=== PATIENT | female | born 1950 | race Caucasian/White ===

== ENCOUNTER 2017-11-13 10:00 | Emergency (ER) | payer OTHER ==
[2017-11-13 10:42] VITALS: TEMP 99.8; BMI 23.4
--- NOTE | 2017-11-13 10:45 | PDOC ---
History of Present Illness - General Chief Complaint: Tremors Stated Complaint: SHAKING Time Seen by Provider: 11/13/17 10:32 - History of Present Illness Initial Comments: 11/13/17 11:15 Chief complaint: Patient is nonverbal, with severe dementia, history obtained from care home staff by phone. Patient is usually ambulatory, wasn't able to get out of bed this morning, appeared to be "shaking", was treated for a UTI at [facility] emergency room 3 days ago, concern was sepsis. History of present illness: As noted above. No known fall, loss of consciousness , head or neck injury. One episode of vomiting 3 days ago, as noted by the staff. Otherwise no other symptoms. Eating and drinking adequately. No further vomiting or diarrhea Past medical history: High blood pressure, elevated cholesterol, hypothyroidism , status post CVA, severe dementia Medications as noted Social/family history: Resident of care home, according to the staff she is usually ambulatory, nonverbal, severely confused. Physical exam: Awake and alert, however confused, not coherent verbally and does not appear to understand or follow commands. Smiles at questions Afebrile, vital signs stable Head atraumatic. PERRLA, ENT clear except for dry mucous membranes Neck supple without bruit mass or nodes Chest clear with full breath sounds throughout bilaterally, no wheezes rales or rhonchi CV S1 and S2 normal without murmur rub or gallop pulses full and symmetric no JVD or edema no bruits Abdomen nondistended, normal bowel sounds. Soft without masses tenderness organomegaly Neurological: Limited cooperation. There appear to be no gross focal deficits. Babinski's down. Gait not assessed. There is no tremor or rigors at present Extremities no CCE. No visible or palpable trauma to the spine or pelvis. Good range of motion of the hips without obvious pain. No shoulder deformity Skin clear, no rash, adequate turgor Impression: Rule out sepsis Plan: CBC chemistries urinalysis urine culture blood cultures lactate chest x- ray and further observation. Past History - Past Medical History Allergies/Adverse Reactions: Allergies Allergy/AdvReac Type Severity Reaction Status Date / Time No Known Allergies Allergy Verified 11/13/17 10:14 Home Medications: Ambulatory Orders Aspirin [Aspirin EC] 81 mg PO DAILY 11/17/16 Atorvastatin Ca [Lipitor] 10 mg PO HS 11/17/16 Cholecalciferol (Vitamin D3) [Vitamin D3] 5,000 unit PO DAILY 11/17/16 Donepezil HCl [Aricept] 10 mg PO HS 11/17/16 Memantine HCl 10 mg PO BID 11/17/16 Metoprolol Succinate [Toprol XL -] 25 mg PO DAILY 11/17/16 Sertraline HCl [Zoloft -] 100 mg PO DAILY 11/17/16 Acetaminophen 1,000 mg PO BID 11/13/17 Cyanocobalamin [Vitamin B12 -] 2,000 mcg PO DAILY 11/13/17 Divalproex *ER* [Depakote *ER* -] 250 mg PO DAILY 11/13/17 Levothyroxine [Synthroid -] 25 mcg PO DAILY 11/13/17 Mirtazapine [Remeron -] 15 mg PO HS 11/13/17 levoFLOXacin [Levaquin -] 250 mg PO DAILY #6 tablet 11/13/17 CVA: Yes COPD: No Dementia: Yes Disorders: Yes (UTI) HTN: Yes Hypercholesterolemia: Yes Psychiatric Problems: Yes (DEMENTIA, PSYCHOSIS, ANXIETY) Thyroid Disease: Yes Other medical history: BACK PAIN - Suicide/Smoking/Psychosocial Hx Smoking Status: Yes Smoking History: Unknown if ever smoked Have you smoked in the past 12 months: No Number of Cigarettes Smoked Daily: 15 Hx Alcohol Use: No Drug/Substance Use Hx: No Substance Use Type: None *Physical Exam - Vital Signs Last Vital Signs Temp Pulse Resp BP Pulse Ox 99.8 F H 80 16 122/53 99 11/13/17 10:13 11/13/17 10:13 11/13/17 10:13 11/13/17 10:13 11/13/17 10:13 ED Treatment Course - LABORATORY CBC & Chemistry Diagram: 11/13/17 11:05 11/13/17 11:05 Medical Decision Making - Medical Decision Making 11/13/17 14:30 CBC with mildly elevated white count, urine with nitrites but very few cells, but bacteria on catheter specimen. BUN 19. Remainder of labs without significant abnormalities Cardiac enzymes negative Chest x-ray negative Patient was ambulating at the bedside, bearing weight without pain, but tentative of gait. A bolus of fluid was administered, Bactrim was DC'd and Levaquin administered IV. Continue by mouth Levaquin. If symptoms due to UTI, status should improve. Follow-up 24 hours primary M.D. 11/13/17 16:15 11/13/17 16:16 *DC/Admit/Observation/Transfer Diagnosis at time of Disposition: UTI (urinary tract infection) Qualifiers: Urinary tract infection type: site unspecified Hematuria presence: without hematuria Qualified Code(s): N39.0 - Urinary tract infection, site not specified - Discharge Dispostion Disposition: HOME Condition at time of disposition: Stable Admit: No - Prescriptions Prescriptions: levoFLOXacin [Levaquin -] 250 mg PO DAILY #6 tablet - Referrals Referrals: Hiren Santana MD [Primary Care Provider] - 24 hours - Patient Instructions Printed Discharge Instructions: DI for Urinary Tract Infection (UTI) Additional Instructions: Still evidence of UTI. Probably the cause of mildly depressed mental status and generalized weakness. Change antibiotics. Encourage fluids. Recheck primary doctor 24 hours. No evidence of sepsis. - Post Discharge Activity
[2017-11-13 12:25] LABS: ANION GAP 11 (8-16); BLOOD UREA NITROGEN 23 mg/dl (7-18); CALCIUM 9.1 mg/dl (8.4-10.2); CHLORIDE 104 mmol/L (98-107); CO2 19 mmol/L (22-28); CREATININE 1.1 mg/dl (0.6-1.3); GLUCOSE,RANDOM 97 mg/dl (74-106); POTASSIUM 3.6 mmol/L (3.5-5.1); SODIUM 134 mmol/L (136-145)
[2017-11-13 12:26] LABS: ALBUMIN 3.7 g/dl (3.5-5.0); ALK PHOS 53 U/L (32-92); BILIRUBIN,TOTAL 0.5 mg/dl (0.2-1.0); SGOT/AST 22 U/L (10-42); SGPT/ALT 12 U/L (10-40); TOT PROT 6.6 g/dl (6.4-8.3)
[2017-11-13 12:29] LABS: HEMATOCRIT 34.6 % (32.4-45.2); HEMOGLOBIN 11.9 GM/dl (10.7-15.3); MCHC 34.5 g/dl (32.0-36.0); MEAN CELL VOLUME 92.8 fl (80-96); MEAN PLT VOLUME 10.1 fl (7.5-11.1); PLATELET COUNT 288 K/MM3 (134-434); RBC 3.73 M/mm3 (3.60-5.2); RDW 11.9 % (11.6-15.6); WHITE BLOOD COUNT 12.6 K/mm3 (4.0-10.8)
[2017-11-13] MEDS ORDERED: SODIUM CHLORIDE 500 ML IV STA (12:38)
[2017-11-13 13:33] LABS: PH,URINE >= 9.0 (4.5-8); URINE APPEARANCE Cloudy; URINE BILIRUBIN Negative (NEGATIVE); URINE GLUCOSE (UA) Negative (NEGATIVE); URINE KETONE 1+ (NEGATIVE); URINE LEUK ESTERASE Negative (NEGATIVE); URINE NITRITE Positive (NEGATIVE); URINE UROBILINOGEN 0.2 (0.2-1.0)
[2017-11-13 13:34] LABS: URINE COLOR YELLOW; URINE PROTEIN 1+ (NEGATIVE)
[2017-11-13 13:35] LABS: EPI CELLS FEW /HPF; URINE BACTERIA MANY /hpf (NEGATIVE); URINE RBC 0-1 /hpf (0-3); URINE WBC 0-2 (0-5)
[2017-11-13 13:54] LABS: AMORP PHOS MODERATE /hpf (NONE SEEN)
[2017-11-13 14:11] LABS: ANISOCYTOSIS 1+; OVALOCYTE 1+
[2017-11-13 14:23] VITALS: BP 115/66; PULSE 84
[2017-11-13 18:19] LABS: PLATELET ESTIMATE ADEQUATE
== END 2017-11-13 16:10 | disposition home or self-care (01) ==
LOC: FER 10:00
PROC: 3E03329 Introduction of Other Anti-infective into Peripheral Vein, Percutaneous Approach (ICD-10-PCS; principal; 2017-11-13)
PROC: 3E0337Z Introduction of Electrolytic and Water Balance Substance into Peripheral Vein, Percutaneous Approach (ICD-10-PCS; 2017-11-13)
DX: N39.0 Urinary tract infection, site not specified (principal); F03.90 Unspecified dementia, unspecified severity, without behavioral disturbance, psychotic disturbance, mood disturbance, and anxiety; Z86.73 Personal history of transient ischemic attack (TIA), and cerebral infarction without residual deficits; I10 Essential (primary) hypertension; E07.9 Disorder of thyroid, unspecified
CPT/HCPCS: 36415; 71045-TC-FY; 80053; 81003; 81015; 82550; 84484; 85025; 87086; 87186; 99283-25

== ENCOUNTER 2019-08-09 17:08 | Observation (INO) | payer OTHER ==
--- NOTE | 2019-08-09 17:42 | PDOC ---
History of Present Illness - General Chief Complaint: Pain Stated Complaint: Injury Time Seen by Provider: 08/09/19 17:41 History Source: Care Provider, EMS, Family, Detention Records Exam Limitations: Dementia - History of Present Illness Initial Comments: 08/09/19 19:10 Pt is a 69y/o female with Alzheimer's, HLD, CVA, and hypothyroidism who presents from [facility] following x-ray with left femoral fx. Pt is non-verbal. Per [facility], the pt was being moved in the morning and was in pain, so an x-ray was done and a left femoral fx with moderate displacement was noted. There is no known fall or injury. She has no report of recent illness. Per daughter, she is at baseline today. Pt is DNR Past History - Past Medical History Allergies/Adverse Reactions: Allergies Allergy/AdvReac Type Severity Reaction Status Date / Time No Known Allergies Allergy Verified 08/09/19 17:40 Home Medications: Ambulatory Orders Acetaminophen [Tylenol] 650 mg PO Q6H PRN #30 capsule 08/10/19 Aspirin 81 mg PO DAILY 08/10/19 Atorvastatin Ca [Lipitor] 10 mg PO HS 08/10/19 Donepezil HCl [Aricept -] 5 mg PO HS 08/10/19 Memantine HCl 10 mg PO BID 08/10/19 Mirtazapine [Remeron -] 15 mg PO HS 08/10/19 Polyethylene Glycol 3350 17 gm PO BID 08/10/19 Potassium Chloride 20 meq PO DAILY 08/10/19 Sertraline HCl [Zoloft -] 25 mg PO DAILY 08/10/19 CVA: Yes COPD: No (DNR) Dementia: Yes Disorders: Yes (UTI) HTN: Yes Hypercholesterolemia: Yes Psychiatric Problems: Yes (DEMENTIA, PSYCHOSIS, ANXIETY) Thyroid Disease: Yes - Psycho Social/Smoking Cessation Hx Smoking Status: Yes Smoking History: Never smoked Have you smoked in the past 12 months: No Number of Cigarettes Smoked Daily: 15 Information on smoking cessation initiated: No Hx Alcohol Use: No Drug/Substance Use Hx: No Substance Use Type: None Review of Systems - Review of Systems Able to Perform ROS?: No *Physical Exam - Vital Signs Last Vital Signs Temp Pulse Resp BP Pulse Ox 99.3 F 107 H 18 133/82 97 08/09/19 17:10 08/09/19 17:10 08/09/19 17:10 08/09/19 17:10 08/09/19 17:10 - Physical Exam General Appearance: Yes: Nourished, Appropriately Dressed, Other (tremulous intermittently). No: Mild Distress HEENT: positive: EOMI, SPENCER, Other (tracks with eyes) Neck: positive: Trachea midline Respiratory/Chest: positive: Lungs Clear (anteriorly). negative: Respiratory Distress Cardiovascular: positive: Regular Rhythm, Regular Rate. negative: Murmur Gastrointestinal/Abdominal: positive: Normal Bowel Sounds. negative: Tender Musculoskeletal: positive: Other (left hip some passive ROM at flexion and abduction/adduction, exam limited by dementia) Extremity: positive: Other (b/l LE warm, non-edematous, pedal pulses intact) Integumentary: positive: Normal Color (no noted ecchymosis anterior and lateral hips and thighs) Neurologic: positive: Alert ED Treatment Course - LABORATORY CBC & Chemistry Diagram: 08/10/19 07:30 08/10/19 07:30 Medical Decision Making - Medical Decision Making 08/09/19 19:09 Pt is a 69y/o female with Alzheimer's, HLD, CVA, and hypothyroidism who presents from [facility] following x-ray with left femoral fx. Pt is non-verbal. Per [facility], the pt was being moved in the morning and was in pain, so an x-ray was done and a left femoral fx with moderate displacement was noted. There is no known fall or injury. She has no report of recent illness. Per daughter, she is at baseline today. ddx: left femoral fx, head injury orders: CBC, CMP, PT/PTT, type and screen, EKG, CXR, CT head and c-spine, hip and pelvis x-ray, morphine 4mg, Ofirmev 1g, Zofran 4mg 08/09/19 22:00 CT head negative for acute processes, old cerebellar infarct x-ray left femoral head fx with displacement I spoke with Dr. Nunez who said keep pt NPO after midnight and will see her tomorrow. Will admit pt to hospitalist. 08/09/19 23:22 Na 150- giving 500cc bolus NS Discharge - Discharge Information Problems reviewed: Yes Clinical Impression/Diagnosis: Femoral fracture Qualifiers: Encounter type: initial encounter Femur location: unspecified portion of femur Fracture type: closed Fracture morphology: other fracture Laterality: left Qualified Code(s): S72.8X2A - Other fracture of left femur, initial encounter for closed fracture Condition: Stable Disposition: [facility] - Admission Yes - Follow up/Referral - Patient Discharge Instructions - Post Discharge Activity
[2019-08-09] MEDS ORDERED: morphine CARPU-JECT 4 MG/1 ML DISP.SYRIN IVPUSH ONE (18:58)
[2019-08-09] MEDS ORDERED: ONDANSETRON 4 MG/2 ML VIAL IVPUSH ONE (18:59)
[2019-08-09] MEDS ORDERED: ACETAMINOPHEN 1000 MG/100 ML VIAL (NON FORMULARY) IVPB ONE (18:59)
[2019-08-09] MEDS ORDERED: ACETAMINOPHEN INJECTION 100 ML IVPB ONE (19:12)
[2019-08-09] MEDS ORDERED: morphine SULFATE 4 MG/ML VIAL ONE (19:12)
[2019-08-09] MEDS ORDERED: ONDANSETRON 4 MG/2 ML VIAL ONE (19:13)
[2019-08-09 19:43] LABS: INR 1.08 (0.83-1.09); PROTHROMBIN TIME (PATIENT) 12.7 SEC (9.7-13.0)
[2019-08-09 19:46] LABS: ACTIVATED PTT 30.3 SECONDS (25.2-36.5)
[2019-08-09 20:03] LABS: ALBUMIN 3.3 g/dl (3.4-5.0); BILIRUBIN,TOTAL 0.5 mg/dL (0.2-1); CALCIUM 9.4 mg/dL (8.5-10.1); CREATININE 0.8 mg/dL (0.55-1.3); POTASSIUM 3.6 mmol/L (3.5-5.1); TOT PROT 7.4 g/dl (6.4-8.2)
--- NOTE | 2019-08-09 22:06 | PDOC ---
Documentation entered by Rani Peck SCRIBE, acting as scribe for Richa Ferraro MD. Richa Ferraro MD: This documentation has been prepared by the Cisco ribeiro Xhesika, SCRIBE, under my direction and personally reviewed by me in its entirety. I confirm that the documentation accurately reflects all work, treatment, procedures, and medical decision making performed by me. Attending Attestation - Resident Resident Name: Isabella Alicea - ED Attending Attestation I have performed the following: I have examined & evaluated the patient, The case was reviewed & discussed with the resident, I agree w/resident's findings & plan, Exceptions are as noted - HPI HPI: 08/09/19 19:40 The patient is a 69 year old female with significant PMH of CVA, HLD, hypothyroidism, chronic UTI, and advanced dementia who presents to the emergency department [facility] from [facility] for L hip pain s/p unwitnessed fall. Per [facility] notes pts x-ray significant for left femoral fracture. The patient is non verbal and unable to ambulate at baseline. Allergies: NKDA PCP: Cynthia Almendarez - Physicial Exam PE: 08/09/19 19:41 GENERAL: Awake, alert, nonverbal at baseline HEAD: No signs of trauma EYES: PERRLA, EOMI, sclera anicteric, conjunctiva clear NECK: Normal ROM, supple, no lymphadenopathy, JVD, or masses LUNGS: Breath sounds equal, clear to auscultation bilaterally. No wheezes, and no crackles HEART: Regular rate and rhythm, normal S1 and S2, no murmurs, rubs or gallops ABDOMEN: Soft, nontender, normoactive bowel sounds. No guarding, no rebound. No masses EXTREMITIES: + LEFT HIP pain ,good dp + , PT+ pulses SKIN: Warm, Dry, normal turgor, no rashes or lesions noted. 08/09/19 22:03 08/09/19 22:07 - Medical Decision Making 08/09/19 22:06 69-year-old female brought in by ambulance from senior living and found to have a left femoral neck fracture Orthopedist Dr. Nunez consulted Patient to be n.p.o. after midnight and admitted to [facility]
[2019-08-09 22:15] LABS: EOS % 1.8 % (0-4.5); HEMATOCRIT 35.4 % (32.4-45.2); HEMOGLOBIN 11.6 GM/dL (10.7-15.3); LYMPH % 15.7 % (8-40); MCH 29.9 pg (25.7-33.7); MCHC 32.7 g/dl (32.0-36.0); MEAN CELL VOLUME 91.4 fl (80-96); MEAN PLT VOLUME 9.1 fl (7.5-11.1); NEUT % 72.5 % (42.8-82.8); PLATELET COUNT 353 K/MM3 (134-434); RBC 3.87 M/mm3 (3.60-5.2); WHITE BLOOD COUNT 12.9 K/mm3 (4.0-10.0)
--- NOTE | 2019-08-09 22:30 | PN ---
Teaching Attending Note Name of Resident: Gavin Leon ATTENDING PHYSICIAN STATEMENT I saw and evaluated the patient. I reviewed the resident's note and discussed the case with the resident. I agree with the resident's findings and plan as documented. SUBJECTIVE: 69y/o female with Alzheimer's, HLD, CVA, and hypothyroidism Presented from [facility] after she was signaling pain in her left hip, x-ray was performed and showed left femoral neck fracture with displacement. As per report from [facility], there was no evidence of fall.Patient is otherwise nonverbal and not able to provide history. Head and neck imaging was performed in the emergency room and did not show any acute fractures or evidence of trauma. OBJECTIVE: Last Vital Signs Temp Pulse Resp BP Pulse Ox 99.3 F 101 H 18 121/82 96 08/09/19 17:10 08/09/19 20:45 08/09/19 20:45 08/09/19 20:45 08/09/19 20:45 GENERAL: Elderly, frail, underlying dementia, nontoxic-appearing, Does not provide any history HEENT: Normocephalic, atraumatic. PERRLA, EOMI. No conjunctival pallor. Sclera are non- icteric. Moist mucous membranes. Oropharynx is clear. NECK: Supple. Full ROM. No JVD. Carotid pulses 2+ and symmetric, without bruits. No thyromegaly. No lymphadenopathy. CARDIOVASCULAR: Regular rate and rhythm. No murmurs, rubs, or gallops. Distal pulses are 2+ and symmetric. PULMONARY: No evidence of respiratory distress. Lungs clear to auscultation bilaterally. No wheezing, rales or rhonchi. ABDOMINAL: Soft. Non-tender. Non-distended. No rebound or guarding. No organomegaly. Normoactive bowel sounds. MUSCULOSKELETAL Normal range of motion at all joints. No bony deformities or tenderness. No CVA tenderness. EXTREMITIES: No cyanosis. No clubbing. No edema. No calf tenderness. SKIN: Reported mild skin breakdown to feet bilaterally PSYCHIATRIC: Severe underlying dementia, not cooperative Abnormal Lab Results 08/09/19 08/09/19 18:55 21:55 WBC 12.9 H Absolute Neuts (auto) 9.4 H Sodium 150 H Chloride 118 H BUN 31.0 H AST 49 H ALT 63 H Albumin 3.3 L Imaging studies reviewed Head CT performed and reviewedno CT evidence of acute intracranial pathology, chronic left cerebellar infarct. CT of cervical spine showed no acute fractures ASSESSMENT AND PLAN: 69-year-old woman with acute left femoral neck fracture, will likely need surgery Admit to [facility] Bed rest and fall precautions Orthopedic surgery consultedDr. Lent DVT prophylaxisSCDs Pain control with Morphine Type and screen #Hyponatremiasuspect likely secondary to intravascular free water deficit, patient appears dry on examFree water deficit appears to be around 1.7 L Send urine lites, osmolarity Send serum osmolarity Half NS at 100 cc an hour Repeat chemistry every 6 hours #Hypoalbuminemiamay be secondary to poor p.o. intakeBMI was 20 which is still in normal range Calorie count Dietary evaluation #Hypothyroidism Send TSH Confirm with pharmacy if taking levothyroxine at this time #Transaminitis Liver sonogram Avoid hepatotoxic meds
[2019-08-09] MEDS ORDERED: SODIUM CHLORIDE 500 ML IV STA (22:52)
--- NOTE | 2019-08-09 23:21 | HP ---
CHIEF COMPLAINT: Left femoral head fracture after suspected unwitnessed fall PCP: Cynthia Almendarez HISTORY OF PRESENT ILLNESS: This is a 69 year old female with PMH of CVA,HLD, Hypothyroidism,chronic UTI, and dementia. She is non verbal at baseline, but her niece is present at the bedside to assist with history taking. The niece was adopted by the patient at the age of 8 and is familiar with her past history. The patient was brought to the ER by EMS from [facility] after she was found to have a left femoral head fracture on X ray at the [facility]. She was being moved in her bed a few hours prior to presentation, when the nursing staff noticed she was wincing in pain. An XRay was done and a left femoral head fracture was found. There is no history of a witnessed fall or any other trauma as per [facility] staff. The niece states that she has had no recent fevers, chills, SOB, diarrhea, vomiting, constipation, or any recent acute illnesses. The patient normally ambulates using a wheelchair, veer since she had a stroke approximately 1 year ago. She was admitted at [facility] at the time , and was also managed for a UTI at the time. She was also admitted for another UTI around that time at [place], as per her niece. ER course was notable for: (1) X Ray Hip shows left femoral head fx, CT Head shows left chronic cerebellar infarct, but no fx (2) Dr. Nunez (Ortho) informed (3) Morphine 4mg + Tylenol 1g for pain management Recent Travel: denies PAST MEDICAL HISTORY: As listed in HPI PAST SURGICAL HISTORY: None Social History: Smoking: Quit 3 years ago, smoked almost 1ppd for 30 years before that Alcohol: Frequent, niece unable to quantify Drugs: denies Allergies No Known Allergies Allergy (Verified 08/09/19 17:40) HOME MEDICATIONS: REVIEW OF SYSTEMS CONSTITUTIONAL: Absent: fever, chills, diaphoresis, generalized weakness, malaise, loss of appetite, weight change HEENT: Absent: rhinorrhea, nasal congestion, throat pain, throat swelling, difficulty swallowing, mouth swelling, ear pain, eye pain, visual changes CARDIOVASCULAR: Absent: chest pain, syncope, palpitations, irregular heart rate, lightheadedness , peripheral edema RESPIRATORY: Absent: cough, shortness of breath, dyspnea with exertion, orthopnea, wheezing, stridor, hemoptysis GASTROINTESTINAL: Absent: abdominal pain, abdominal distension, nausea, vomiting, diarrhea, constipation, melena, hematochezia GENITOURINARY: Absent: dysuria, frequency, urgency, hesitancy, hematuria, flank pain, genital pain MUSCULOSKELETAL: Absent: myalgia, arthralgia, joint swelling, back pain, neck pain SKIN: Absent: rash, itching, pallor HEMATOLOGIC/IMMUNOLOGIC: Absent: easy bleeding, easy bruising, lymphadenopathy, frequent infections ENDOCRINE: Absent: unexplained weight gain, unexplained weight loss, heat intolerance, cold intolerance NEUROLOGIC: Absent: headache, focal weakness or paresthesias, dizziness, unsteady gait, seizure, mental status changes, bladder or bowel incontinence PSYCHIATRIC: Absent: anxiety, depression, suicidal or homicidal ideation, hallucinations. PHYSICAL EXAMINATION Vital Signs - 24 hr 08/09/19 08/09/19 17:10 20:45 Temperature 99.3 F Pulse Rate 107 H Pulse Rate [ 101 H Right Radial] Respiratory 18 18 Rate Blood Pressure 133/82 Blood Pressure 121/82 [Left Arm] O2 Sat by Pulse 97 96 Oximetry (%) GENERAL: AOx0, non verbal, awake HEAD: Normal with no signs of trauma. EYES: ANURAG, EOMI EARS, NOSE, THROAT: Ears normal, nares patent, oropharynx clear without exudates , dry NECK: Normal range of motion, supple without lymphadenopathy, JVD, or masses. LUNGS: Decreased breath sounds B/L HEART: Tachycardic, normal S1 and S2 without murmur, rub or gallop. ABDOMEN: Soft, nontender, not distended, normoactive bowel sounds, no guarding, no rebound, no masses. No hepatomegaly or splenomegaly. MUSCULOSKELETAL: Left hip decreased range of motion LOWER EXTREMITIES: 2+ pulses, warm, well-perfused. No calf tenderness. No peripheral edema. NEUROLOGICAL: Pt unable to follow commands SKIN: Warm, dry, normal turgor, no rashes or lesions noted, normal capillary refill. Laboratory Results - last 24 hr 08/09/19 08/09/19 08/09/19 18:55 18:55 18:55 WBC RBC Hgb Hct MCV MCH MCHC RDW Plt Count MPV Absolute Neuts (auto) Neutrophils % Lymphocytes % Monocytes % Eosinophils % Basophils % Nucleated RBC % PT with INR 12.70 INR 1.08 PTT (Actin FS) 30.3 Sodium 150 H Potassium 3.6 Chloride 118 H Carbon Dioxide 22 Anion Gap 9 BUN 31.0 H Creatinine 0.8 Est GFR (CKD-EPI)AfAm 86.57 Est GFR (CKD-EPI)NonAf 74.70 Random Glucose 103 Calcium 9.4 Total Bilirubin 0.5 AST 49 H ALT 63 H Alkaline Phosphatase 95 Total Protein 7.4 Albumin 3.3 L Blood Type O POSITIVE Antibody Screen Negative 08/09/19 21:55 WBC 12.9 H RBC 3.87 Hgb 11.6 Hct 35.4 MCV 91.4 MCH 29.9 MCHC 32.7 RDW 13.0 Plt Count 353 MPV 9.1 Absolute Neuts (auto) 9.4 H Neutrophils % 72.5 Lymphocytes % 15.7 Monocytes % 9.0 Eosinophils % 1.8 Basophils % 1.0 Nucleated RBC % 0 PT with INR INR PTT (Actin FS) Sodium Potassium Chloride Carbon Dioxide Anion Gap BUN Creatinine Est GFR (CKD-EPI)AfAm Est GFR (CKD-EPI)NonAf Random Glucose Calcium Total Bilirubin AST ALT Alkaline Phosphatase Total Protein Albumin Blood Type Antibody Screen ASSESSMENT/PLAN: 69F with PMH of CVA,HLD, Hypothyroidism,chronic UTI, and dementia, non verbal at baseline, brought to the ER by EMS from [facility] after she was found to have a left femoral head fracture on X ray at the [facility]. with no witnessed trauma/ fx. #Left femoral head fracture - Left hip XRay: L femoral head fx - CT Head shows left chronic cerebellar infarct, but no fx, CT C Spine shows no fx - Ortho (Dr. Nunez) informed - NPO after midnight - CBC, CMP, PT/INR, Type and screen ordered for AM #Leukocytosis - WBC 12.9, may be reactive to stress - Hx of chronic UTIs - UA: LE 1+, Protein 1+, trace ketones #Transaminitis - AST 49, ALT 63 - Currently unexplained, ordered Liver US for further workup #FEN - Na 150, chronic vs acute, may be due to dehydration, no recent records to compare to - Will continue hydrate with 1/2 N/S @ 100/hr - Serum osmolarity, urine lytes ordered - Recheck Na in the morning - NPO after midnight - Dietary consult placed for hypoalbuminemia #DVT - SCDs, will hold AC for now, pending possible procedure #Dispo - Patient DNR according to Jackie CARLOS, currently pending confirmatory MOLST form from Jackie Visit type - Emergency Visit Emergency Visit: Yes ED Registration Date: 08/10/19 Care time: The patient presented to the Emergency Department on the above date and was hospitalized for further evaluation of their emergent condition. - New Patient This patient is new to me today: Yes Date on this admission: 08/12/19 - Critical Care Critical Care patient: No ATTENDING PHYSICIAN STATEMENT I saw and evaluated the patient. I reviewed the resident's note and discussed the case with the resident. I agree with the resident's findings and plan as documented. SUBJECTIVE: OBJECTIVE: ASSESSMENT AND PLAN:
[2019-08-09 23:55] LABS: EPI CELLS >36 /HPF (0-5/HPF); HYALINE CASTS 27 /lpf (0-8); PH,URINE 7.5 (5.0-8.0); URINE APPEARANCE TURBID; URINE BILIRUBIN NEGATIVE (NEGATIVE); URINE COLOR YELLOW; URINE GLUCOSE (UA) NEGATIVE (NEGATIVE); URINE KETONE TRACE (NEGATIVE); URINE LEUK ESTERASE 1+ (NEGATIVE); URINE NITRITE POSITIVE (NEGATIVE); URINE PROTEIN 1+ (NEGATIVE); URINE WBC 34 /hpf (0-5)
[2019-08-10 00:58] LABS: URINE RBC 5 /hpf (0-4); YEAST NONE SEEN (NEGATIVE)
[2019-08-10] MEDS ORDERED: SODIUM CHLORIDE 0.45% 1,000 ML IV SCH (01:30)
[2019-08-10] MEDS ORDERED: MORPHINE SULFATE 2 MG/ML VIAL IVPUSH PRN (01:31)
[2019-08-10] MEDS ORDERED: ACETAMINOPHEN 1000 MG/100 ML VIAL (NON FORMULARY) IVPB PRN (01:33)
[2019-08-10 03:39] VITALS: BMI 19.3
[2019-08-10 08:07] LABS: BASO % 0.6 % (0-2.0); HEMOGLOBIN 11.1 GM/dL (10.7-15.3); LYMPH % 16.2 % (8-40); MCH 29.8 pg (25.7-33.7); MCHC 32.6 g/dl (32.0-36.0); MEAN CELL VOLUME 91.3 fl (80-96); MEAN PLT VOLUME 9.4 fl (7.5-11.1); MONO % 6.9 % (3.8-10.2); NEUT % 72.3 % (42.8-82.8); PLATELET COUNT 365 K/MM3 (134-434); RBC 3.73 M/mm3 (3.60-5.2); WHITE BLOOD COUNT 11.5 K/mm3 (4.0-10.0)
[2019-08-10 08:21] LABS: ALBUMIN 2.9 g/dl (3.4-5.0); BILIRUBIN,TOTAL 0.5 mg/dL (0.2-1); BLOOD UREA NITROGEN 28.9 mg/dL (7-18); CREATININE 0.6 mg/dL (0.55-1.3); POTASSIUM 3.9 mmol/L (3.5-5.1); TOT PROT 6.4 g/dl (6.4-8.2)
--- NOTE | 2019-08-10 09:09 | PN ---
Teaching Attending Note Name of Resident: Alejo Torrez ATTENDING PHYSICIAN STATEMENT I saw and evaluated the patient. I reviewed the resident's note and discussed the case with the resident. I agree with the resident's findings and plan as documented. SUBJECTIVE: Patient is nonverbal unable to offer any complaints OBJECTIVE: Vital Signs Temperature 98.6 F 08/10/19 05:54 Pulse Rate 111 H 08/10/19 05:54 Respiratory Rate 73 H 08/10/19 05:54 Blood Pressure 140/73 08/10/19 05:54 O2 Sat by Pulse Oximetry (%) 96 08/10/19 00:46 General: Elderly , comfortable, not in distress HEENT; mucous membranes moist, no anemia, no jaundice, PERRLA, no nystagmus Neck: No JVD, supple, no bruit, thyroid palpably normal, normal carotid pulsations. Chest: Nontender, clear to auscultation bilaterally/bilateral wheezing/ bilateral basal rales. CVS: S1-S2 regular/irregular no murmur/gallop/rub Abdomen: Nondistended, soft, bowel sounds present. Extremities: Left lower extremity laterally rotated no edema., No cough tenderness, pulses present HEEL FINISHER: Nonverbal, oriented to self CBC, BMP 08/10/19 07:30 08/10/19 07:30 CT head: No acute changes X-ray pelvis: Left femoral head fracture Active Medications Acetaminophen (Ofirmev Injection -) 1,000 mg IVPB Q8H PRN PRN Reason: PAIN Stop: 08/11/19 01:33 Acetaminophen (Tylenol -) 650 mg PO BID FABI Atorvastatin Calcium (Lipitor -) 10 mg PO HS FABI Donepezil HCl (Aricept -) 5 mg PO HS FABI Sodium Chloride (1/2 Normal Saline) 1,000 mls @ 100 mls/hr IV ASDIR FABI Last Admin: 08/10/19 01:45 Dose: 100 mls/hr Memantine (Namenda -) 10 mg PO BID FABI Mirtazapine (Remeron -) 15 mg PO HS FABI Morphine Sulfate (Morphine Sulfate) 2 mg IVPUSH Q6H PRN PRN Reason: PAIN LEVEL 6-10 Polyethylene Glycol (Miralax (For Daily Use) -) 17 gm PO BID FABI Potassium Chloride (K-Dur -) 20 meq PO DAILY FABI Sertraline HCl (Zoloft -) 25 mg PO DAILY FABI ASSESSMENT AND PLAN:69 year old female with PMH of CVA,HLD, Hypothyroidism, chronic UTI, and dementia. She is non verbal at baseline information is gathered from the niece, patient was transferred from [facility],she was found to have a left femoral head fracture on X ray at the [place]. Plan: Patient has advanced dementia present with questionable acute fracture left femur neck, at baseline bedbound evaluated by orthopedic surgery recommended no intervention, will transfer back the patient to [facility], [place] Bentley catheter, no indication for hepatobiliary imaging, mildly elevated SGOT SGPT that trended back to normal alkaline phosphatase normal. Patient will be transferred back to [facility] today Problem List - Problems (1) Left displaced femoral neck fracture Assessment/Plan: Patient oh does not offer any complaint of pain, evaluated by orthopedic surgery suggested no surgery indicated most likely old fracture, patient is bedbound advance dementia and nonverbal so no surgical intervention. Problems reviewed: Yes Code(s): S72.002A - FRACTURE OF UNSP PART OF NECK OF LEFT FEMUR, INIT (2) Alzheimer's dementia Assessment/Plan: Continue all home medications Problems reviewed: Yes Code(s): G30.9 - ALZHEIMER'S DISEASE, UNSPECIFIED; F02.80 - DEMENTIA IN OTH DISEASES CLASSD ELSWHR W/O BEHAVRL DISTURB (3) Hypertension Assessment/Plan: Continue home medications Problems reviewed: Yes Code(s): I10 - ESSENTIAL (PRIMARY) HYPERTENSION (4) Hypercholesterolemia Assessment/Plan: Patient is on Lipitor 10 mg Problems reviewed: Yes Code(s): E78.00 - PURE HYPERCHOLESTEROLEMIA, UNSPECIFIED (5) Transaminitis Assessment/Plan: Patient is mildly elevated SGOT SGPT trended normal no indication for any imaging or intervention alk phos is 72. Problems reviewed: Yes Code(s): R74.0 - NONSPEC ELEV OF LEVELS OF TRANSAMNS & LACTIC ACID DEHYDRGNSE
--- NOTE | 2019-08-10 09:47 | PN ---
Progress Note (short form) - Note Progress Note: Pt seen and examined. She is a 69 year old female pt, [place] resident, + Dementia, non verbal, bedbound, not an ambulator, with chronic flexion contractures of both legs, with no specific history of recent or distant fall or injury. She was brought to the ER bc of what seemed like complaints of left hip pain. AVSS PE B/L LE have significant flexion contractures at the hips, knees, ankles, indicative of being a correction non ambulator. She appears comfortable, no obvious pain. No pain with pressure over the left hip and hemipelvis. X-rays Show a displaced, chronic, left femoral neck fracture. Imp 69 yo F with severe dementia, non ambulator, chronic flexion contractures , and in no pain with radiographic evidence of an old fracture of the left femoral neck. Rec Not recommending surgery, no indications at this time. NTD, no P.T. possible except stretching in bed. Can DC from an orthopedic pov.
[2019-08-10] MEDS ORDERED: SERTRALINE HCL 25 MG TABLET (FP) PO SCH (10:00)
[2019-08-10] MEDS ORDERED: POLYETHYLENE GLYCOL 3350 119 GM BTL PO SCH (10:00)
[2019-08-10] MEDS ORDERED: MEMANTINE HCL 10 MG TABLET (FP) PO SCH (10:00)
[2019-08-10] MEDS ORDERED: ACETAMINOPHEN 325 MG TABLET (FP) PO SCH (10:00)
[2019-08-10] MEDS ORDERED: PATIENT'S OWN MEDICATION (NON-FORMULARY) (Potassium Chloride [Potassium Chloride] 20 MEQ) PO SCH (10:00)
[2019-08-10] MEDS ORDERED: PATIENT'S OWN MEDICATION (NON-FORMULARY) (Polyethylene Glycol 3350 [Polyethylene Glycol 33 PO SCH (10:00)
[2019-08-10] MEDS ORDERED: POTASSIUM CHLORIDE TABS 20 MEQ TABLET.ER (FP) PO SCH (10:00)
--- NOTE | 2019-08-10 11:10 | DS ---
Physical Exam: SUBJECTIVE: Patient seen and examined. no events overnight. OBJECTIVE: Vital Signs Period Temp Pulse Resp BP Sys/John Pulse Ox Last 24 Hr 97.5 F-99.3 F 101-111 18-73 121-141/73-82 96-97 PHYSICAL EXAM GENERAL: nonverbal, awake, appears comfortable HEAD: Normal with no signs of trauma. EYES: ANURAG, EOMI EARS, NOSE, THROAT: oropharynx clear without exudates, dry NECK: supple without lymphadenopathy, JVD, or masses. LUNGS: Decreased breath sounds B/L HEART: RRR, normal S1 and S2 without murmur, rub or gallop. ABDOMEN: Soft, nontender, not distended, normoactive bowel sounds MUSCULOSKELETAL: B/L LE have significant flexion contractures at the hips, knees , ankles LOWER EXTREMITIES: 2+ pulses, No peripheral edema. LABS Laboratory Results - last 24 hr 08/09/19 08/09/19 08/09/19 18:55 18:55 18:55 WBC RBC Hgb Hct MCV MCH MCHC RDW Plt Count MPV Absolute Neuts (auto) Neutrophils % Lymphocytes % Monocytes % Eosinophils % Basophils % Nucleated RBC % PT with INR 12.70 INR 1.08 PTT (Actin FS) 30.3 Sodium 150 H Potassium 3.6 Chloride 118 H Carbon Dioxide 22 Anion Gap 9 BUN 31.0 H Creatinine 0.8 Est GFR (CKD-EPI)AfAm 86.57 Est GFR (CKD-EPI)NonAf 74.70 Random Glucose 103 Calcium 9.4 Total Bilirubin 0.5 AST 49 H ALT 63 H Alkaline Phosphatase 95 Total Protein 7.4 Albumin 3.3 L TSH Urine Color Urine Appearance Urine pH Ur Specific [place] Urine Protein Urine Glucose (UA) Urine Ketones Urine Blood Urine Nitrite Urine Bilirubin Urine Urobilinogen Ur Leukocyte Esterase Urine WBC (Auto) Urine RBC (Auto) Urine Casts (Auto) U Pathogenic Cast Auto U Epithel Cells (Auto) Urine Bacteria (Auto) Urine Yeast (Auto) Blood Type O POSITIVE Antibody Screen Negative 08/09/19 08/09/19 08/10/19 21:55 23:20 07:30 WBC 12.9 H 11.5 H RBC 3.87 3.73 Hgb 11.6 11.1 Hct 35.4 34.0 MCV 91.4 91.3 MCH 29.9 29.8 MCHC 32.7 32.6 RDW 13.0 13.0 Plt Count 353 365 MPV 9.1 9.4 Absolute Neuts (auto) 9.4 H 8.4 H Neutrophils % 72.5 72.3 Lymphocytes % 15.7 16.2 Monocytes % 9.0 6.9 Eosinophils % 1.8 4.0 D Basophils % 1.0 0.6 Nucleated RBC % 0 0 PT with INR INR PTT (Actin FS) Sodium Potassium Chloride Carbon Dioxide Anion Gap BUN Creatinine Est GFR (CKD-EPI)AfAm Est GFR (CKD-EPI)NonAf Random Glucose Calcium Total Bilirubin AST ALT Alkaline Phosphatase Total Protein Albumin TSH Urine Color Yellow Urine Appearance Turbid Urine pH 7.5 Ur Specific [place] 1.028 Urine Protein 1+ H Urine Glucose (UA) Negative Urine Ketones Trace H Urine Blood Trace Urine Nitrite Positive H Urine Bilirubin Negative Urine Urobilinogen 1.0 Ur Leukocyte Esterase 1+ H Urine WBC (Auto) 34 Urine RBC (Auto) 5 Urine Casts (Auto) 27 U Pathogenic Cast Auto None seen U Epithel Cells (Auto) >36 Urine Bacteria (Auto) 7358.0 Urine Yeast (Auto) None seen Blood Type Antibody Screen 08/10/19 08/10/19 08/10/19 07:30 07:30 07:30 WBC RBC Hgb Hct MCV MCH MCHC RDW Plt Count MPV Absolute Neuts (auto) Neutrophils % Lymphocytes % Monocytes % Eosinophils % Basophils % Nucleated RBC % PT with INR INR PTT (Actin FS) Sodium 150 H Potassium 3.9 Chloride 119 H Carbon Dioxide 25 Anion Gap 6 L BUN 28.9 H Creatinine 0.6 Est GFR (CKD-EPI)AfAm 107.03 Est GFR (CKD-EPI)NonAf 92.35 Random Glucose 107 H Calcium 9.0 Total Bilirubin 0.5 AST 28 ALT 45 Alkaline Phosphatase 82 Total Protein 6.4 Albumin 2.9 L TSH 2.67 Urine Color Urine Appearance Urine pH Ur Specific [place] Urine Protein Urine Glucose (UA) Urine Ketones Urine Blood Urine Nitrite Urine Bilirubin Urine Urobilinogen Ur Leukocyte Esterase Urine WBC (Auto) Urine RBC (Auto) Urine Casts (Auto) U Pathogenic Cast Auto U Epithel Cells (Auto) Urine Bacteria (Auto) Urine Yeast (Auto) Blood Type O POSITIVE Antibody Screen Negative HOSPITAL COURSE: Date of Admission:08/10/19 69F with PMH of CVA,HLD, Hypothyroidism,chronic UTI, and dementia, non verbal at baseline, brought to the ER by EMS from [facility] after she was found to have left leg pain. #Chronic Displaced Left femoral neck fracture -X-rays: Show a displaced, chronic, left femoral neck fracture. per ortho, Not recommending surgery, no indications at this time. NTD, no P.T. possible except stretching in bed. Can DC from an orthopedic pov. patient stable, in no pain. can send back to [facility]. Date of Discharge: 08/10/19 Minutes to complete discharge: 35 Discharge Summary Problems reviewed: Yes Reason For Visit: FRACTURE OF FEMUR Current Active Problems Hypercholesterolemia (Acute) Hypertension (Acute) Left displaced femoral neck fracture (Acute) Transaminitis (Acute) Condition: Stable - Instructions Diet, Activity, Other Instructions: You were admitted because of Leg pain. You were found to have a displaced, CHRONIC, left femoral neck fracture. Orthopedic surgery saw you and did not recommend surgery. Please follow up with your primary care doctor within 1 week. We have not made any changes to your medications. Referrals: Cynthia Rosa MD [Primary Care Provider] - 1 Week Disposition: [facility] FACILITY - Home Medications Comprehensive Discharge Medication List: Ambulatory Orders Acetaminophen [Tylenol] 650 mg PO BID 08/10/19 Aspirin 81 mg PO DAILY 08/10/19 Atorvastatin Ca [Lipitor] 10 mg PO HS 08/10/19 Donepezil HCl [Aricept -] 5 mg PO HS 08/10/19 Memantine HCl 10 mg PO BID 08/10/19 Mirtazapine [Remeron -] 15 mg PO HS 08/10/19 Polyethylene Glycol 3350 17 gm PO BID 08/10/19 Potassium Chloride 20 meq PO DAILY 08/10/19 Sertraline HCl [Zoloft -] 25 mg PO DAILY 08/10/19 This patient is new to me today: Yes Date on this admission: 08/10/19 Emergency Visit: Yes ED Registration Date: 08/10/19 Care time: The patient presented to the Emergency Department on the above date and was hospitalized for further evaluation of their emergent condition. Critical Care patient: No - Discharge Referral Referred to [facility] Med P.C.: No ATTENDING PHYSICIAN STATEMENT I saw and evaluated the patient. I reviewed the resident's note and discussed the case with the resident. I agree with the resident's findings and plan as documented. SUBJECTIVE: OBJECTIVE: ASSESSMENT AND PLAN:
[2019-08-10 11:18] VITALS: BP 148/89; PULSE 104; TEMP 97.9
--- NOTE | 2019-08-10 12:04 | EKG ---
Test Reason : Blood Pressure : / mmHG Vent. Rate : 117 BPM Atrial Rate : 117 BPM P-R Int : 122 ms QRS Dur : 072 ms QT Int : 338 ms P-R-T Axes : 056 -05 -12 degrees QTc Int : 471 ms BASELINE ARTIFACT SINUS TACHYCARDIA WITH OCCASIONAL and consecutive PREMATURE VENTRICULAR COMPLEXES ABNORMAL ECG NO PREVIOUS ECGS AVAILABLE Confirmed by MD NOE, GLORIA ([id number]) on 08/10/2019 12:03:45 PM Referred By: Confirmed By:GLORIA LIU MD
[2019-08-10] MEDS ORDERED: ATORVASTATIN CA 10 MG TABLET (FP) PO SCH (22:00)
[2019-08-10] MEDS ORDERED: MIRTAZAPINE 15 MG TABLET (FP) PO SCH (22:00)
[2019-08-10] MEDS ORDERED: DONEPEZIL HCL 5 MG TABLET (FP) PO SCH (22:00)
== END 2019-08-10 13:14 ==
LOC: JER 17:08 → INTOOBSV 22:10 → JERBED 22:10 → UNDOADMOB 22:10 → JERBED 08-10 01:39 → J6S 08-10 01:39 → JERBED 08-10 10:45
PROVIDERS: ADMIT Internal Medicine; ATTEND Internal Medicine
PROC: 3E033NZ Introduction of Analgesics, Hypnotics, Sedatives into Peripheral Vein, Percutaneous Approach (ICD-10-PCS; principal; 2019-08-10)
PROC: 3E0337Z Introduction of Electrolytic and Water Balance Substance into Peripheral Vein, Percutaneous Approach (ICD-10-PCS; 2019-08-10)
PROC: 3E033GC Introduction of Other Therapeutic Substance into Peripheral Vein, Percutaneous Approach (ICD-10-PCS; 2019-08-10)
DX: S72.002A Fracture of unspecified part of neck of left femur, initial encounter for closed fracture (principal); X58.XXXA Exposure to other specified factors, initial encounter; Y93.9 Activity, unspecified; Y92.9 Unspecified place or not applicable; I10 Essential (primary) hypertension; E78.5 Hyperlipidemia, unspecified; G30.9 Alzheimer's disease, unspecified; F02.80 Dementia in other diseases classified elsewhere, unspecified severity, without behavioral disturbance, psychotic disturbance, mood disturbance, and anxiety; E03.9 Hypothyroidism, unspecified; E87.1 Hypo-osmolality and hyponatremia; R77.0 Abnormality of albumin; R74.0 Nonspecific elevation of levels of transaminase and lactic acid dehydrogenase [LDH]; D72.829 Elevated white blood cell count, unspecified; R47.9 Unspecified speech disturbances; Z99.3 Dependence on wheelchair; Z87.440 Personal history of urinary (tract) infections; Z86.73 Personal history of transient ischemic attack (TIA), and cerebral infarction without residual deficits; Z87.891 Personal history of nicotine dependence
CPT/HCPCS: 36415; 70450-TC; 71045-TC-FY; 72125-TC; 73523-TC-FY; 80053; 81003; 83930; 84443; 85025; 85610; 85730; 86850; 86900; 86901; 87086; 93005; 93010; 96361; 96374; 96375; 96376; 99285-25; G0378; J0131